=== PATIENT | female | born 1965 | race Caucasian/White ===

== ENCOUNTER 2022-02-16 06:54 | Day surgery (SDC) | payer OTHER ==
[~2022-02-16] VITALS: Ht 152.4 cm; Wt 68.0 kg
[~2022-02-16 06:54] MED LIST: AZOR 5-20 MG T1 EACH PO; CELEBREX200MG PO; COZAAR100 MG PO; CYMBALTA60 MG PO; RESTORIL30 M1 PO; SYNTHROID75 MCG PO
[2022-02-16] MEDS ORDERED: PERCOCET 5-3251 EACH PO (11:01)
[2022-02-16] MEDS ORDERED: ALEVE220 M1 PO (11:01)
[2022-02-16] MEDS ORDERED: DUI500 PO (11:01)
== END 2022-02-16 13:35 | disposition home or self-care (01) ==
LOC: CIR.AMB 06:54
PROVIDERS: ATTEND Orthopaedic Surgery
DX: M75.122 Complete rotator cuff tear or rupture of left shoulder, not specified as traumatic (principal); M19.012 Primary osteoarthritis, left shoulder; M65.812 Other synovitis and tenosynovitis, left shoulder; M75.52 Bursitis of left shoulder; M75.42 Impingement syndrome of left shoulder; I10 Essential (primary) hypertension; E03.9 Hypothyroidism, unspecified; D64.9 Anemia, unspecified; Z20.822 Contact with and (suspected) exposure to COVID-19; Z86.16 Personal history of COVID-19